=== PATIENT | male | born 2000 | race Caucasian/White ===

== ENCOUNTER 2022-03-15 21:36 | Emergency (ER) | payer MEDICAID ==
[~2022-03-15] VITALS: Ht 170.2 cm; Wt 68.0 kg
[2022-03-15] MEDS ORDERED: SODIUM CHLORIDE 0.9% 1,000 ML IV ONE (22:00)
[2022-03-15 22:35] LABS: BASOPHILS % 0.6 % (0.0-2.0); EOSINOPHILS % 5.6 % (0.0-5.0); HEMATOCRIT. 40.9 % (42.0-52.0); HEMOGLOBIN. 14.2 g/dL (14.0-18.0); MEAN CORPUSCULAR HEMOGLOBIN 30.7 pg (28.0-32.0); MEAN CORPUSCULAR VOLUME 88.4 fL (80.0-94.0); MEAN PLATELET VOLUME 6.6 fl (7.4-10.4); MONOCYTES % 7.9 % (2.0-8.0); NEUTROPHILS % 48.9 % (40.0-76.0); PLATELET 236 x1000/uL (130-400); RED BLOOD CELL COUNT 4.63 mill/uL (4.7-6.1); RED CELL DISTRIBUTION WIDTH 13.1 % (11.6-14.6)
[2022-03-15 22:38] LABS: CHLORIDE 104 mEq/L (98-107)
[2022-03-15 22:46] LABS: ETHANOL BLOOD < 10 mg/dL
[2022-03-16] MEDS ORDERED: NALO4SPR BOTHNSTRLS
[2022-03-16 00:19] VITALS: BP 131/81
== END 2022-03-16 00:20 | disposition home or self-care (01) ==
LOC: ER 21:36
DX: F19.10 Other psychoactive substance abuse, uncomplicated (principal); R74.01 Elevation of levels of liver transaminase levels; J45.909 Unspecified asthma, uncomplicated
CPT/HCPCS: 36415; 70450; 80053; 80320; 85025; 96360; 99284; J7030; G0480